=== PATIENT | male | born 1955 | race African-American/Black ===

== ENCOUNTER → 2022-03-21 | Outpatient (CLI) | payer MEDICARE, OTHER | LOC: LAB 09:17 | DX: Z23 Encounter for immunization (principal); I10 Essential (primary) hypertension; M10.09 Idiopathic gout, multiple sites; E78.2 Mixed hyperlipidemia; N40.1 Benign prostatic hyperplasia with lower urinary tract symptoms; K63.5 Polyp of colon; R73.03 Prediabetes; R79.89 Other specified abnormal findings of blood chemistry ==

== ENCOUNTER → 2023-09-16 | Outpatient (CLI) | payer MEDICARE, OTHER ==
[2023-09-16 11:38] LABS: BASO # 0.01 K/mm3 (0.02-0.10); EOS # 0.04 K/mm3 (0.04-0.40); EOS % 1.3 % (0.0-4.0); HEMATOCRIT 41.3 % (42.0-52.0); HEMOGLOBIN 13.4 g/dL (13.5-18.0); LYMPH# 0.83 K/mm3 (1.50-4.00); MEAN CELL VOLUME 87 fl (78-100); MEAN CORPUSCULAR HEMOGLOBIN 28 pg (27-31); MEAN CORPUSCULAR HGB CONC 32 g/dL (33-37); MEAN PLATELET VOLUME 8.9 fl (7.4-10.4); MONO # 0.27 K/mm3 (0.20-0.80); NEU # 1.97 K/mm3 (1.40-6.50); PLATELET COUNT 232 K/mm3 (130-400); RED BLOOD COUNT 4.77 M/mm3 (4.20-5.60); RED CELL DISTRIBUTION WIDTH 15.7 % (11.5-14.5); WHITE BLOOD COUNT 3.1 K/mm3 (4.8-10.8)
[2023-09-16 11:47] LABS: ALBUMIN 3.7 g/dL (3.4-4.8)
[2023-09-16 11:48] LABS: CALCIUM 10.2 mg/dL (8.3-10.5)
[2023-09-16 11:50] LABS: TOTAL PROTEIN 6.5 g/dL (6.2-8.1)
[2023-09-16 11:56] LABS: MAGNESIUM 1.87 mg/dL (1.60-2.60)
[2023-09-16 13:13] LABS: TOTAL BILIRUBIN 0.4 mg/dL (0.2-1.2)
== END ==
LOC: LAB 11:24
PROVIDERS: Internal Medicine
DX: K90.9 Intestinal malabsorption, unspecified (principal); I10 Essential (primary) hypertension; M10.09 Idiopathic gout, multiple sites; R73.9 Hyperglycemia, unspecified

== ENCOUNTER → 2024-03-23 | Outpatient (CLI) | payer MEDICARE, OTHER | LOC: RAD 08:53 | DX: N28.9 Disorder of kidney and ureter, unspecified (principal) ==